=== PATIENT | male | born 1950 | race Asian ===

== ENCOUNTER 2022-12-07 18:00 | Emergency (ER) | payer OTHER ==
[~2022-12-07] VITALS: Ht 157.5 cm; Wt 66.2 kg
[2022-12-07 18:30] LABS: PLATELET COUNT 254 K/uL (142-355)
[2022-12-07 18:48] LABS: POTASSIUM 3.8 mmol/L (3.6-5.2)
[2022-12-08] MEDS ORDERED: CHEWABLE CALCI500 MG PO (12:43)
[2022-12-08] MEDS ORDERED: FINA5TAB2 PO (12:44)
[2022-12-08] MEDS ORDERED: [UNRECOGNIZED DRUG - OTHER] PO (12:46)
[2022-12-08] MEDS ORDERED: TAMS0.4C PO (12:46)
[2022-12-08] MEDS ORDERED: FAMOTIDINE MAXI20 MG PO (12:51)
[2022-12-08] MEDS ORDERED: ACET-206 PO (12:52)
[2022-12-08] MEDS ORDERED: CREON6000 UNIT PO (12:54)
[2022-12-08] MEDS ORDERED: B1100 MG PO (12:56)
== END 2022-12-07 19:15 | disposition still patient (30) ==
LOC: ED 18:00
PROVIDERS: Emergency Medicine
DX: F03.911 Unspecified dementia, unspecified severity, with agitation (principal); Z11.52 Encounter for screening for COVID-19; Z04.6 Encounter for general psychiatric examination, requested by authority
CPT/HCPCS: 36415; 80053; 81002; 85027; 87635; 93005; 99283; U0003